=== PATIENT | female | born 1955 | race Caucasian/White ===

== ENCOUNTER 2016-10-24 09:15 | Emergency (ER) | payer OTHER ==
[2016-10-24] MEDS ORDERED: Albuterol/Ipratropium 3.0-0.5 MG/3 ML Neb Soln NEB ONE (09:40)
[2016-10-24] MEDS ORDERED: Doxycycline 100 MG Cap ONE ×2 (09:50)
[2016-10-24] MEDS ORDERED: predniSONE 10 MG Tab ONE (09:50)
[2016-10-24] MEDS ORDERED: Codeine/guaiFENesin 100mg-10 MG/5 ML Soln 118 ML Bottle ONE (09:50)
[2016-10-24 10:03] VITALS: BP 133/68
[2016-10-24] MEDS ORDERED: Codeine/guaiFENesin 100-10 MG/5 ML Syrup 5 ML Cup ONE (10:32)
[2016-10-24] MEDS ORDERED: predniSONE 20 MG Tab ONE (10:33)
--- NOTE | 2016-10-24 17:24 | ER ---
HISTORY OF PRESENT ILLNESS: A 61-year-old lady here with complaints of coughing, congestion, both of the sinus pressure, some headaches and chest congestion. Her cough is mostly negative. At times, she has been blowing a lot of phlegm out of her nose. She denies any problems with shortness of breath, but she has felt a little wheezy at times. She does have an albuterol inhaler she took at home, which did not seem to help very much. She has not been running a fever and denies any nausea. CURRENT MEDICATIONS: Reviewed. OBJECTIVE: GENERAL APPEARANCE: The patient is awake and alert. She has obvious head congestion and a fairly frequent coarse sounding cough. VITAL SIGNS: Reviewed. She is afebrile and normotensive. O2 sats are 94% on room air. HEENT: Ears, TMs are dull. Nares are congested. Oral mucous membranes are moist. Posterior pharynx shows drainage and scattered cobblestoning. The patient does have maxillary and frontal sinus tenderness with palpation. NECK: Supple. LUNG: Exam reveals slightly reduced air exchange throughout the lung whiting. I do not hear any rales, rhonchi, or obvious wheezing at this time. LABORATORY AND X-RAY: CBC is obtained showing a normal white count. Comprehensive metabolic panel is unremarkable. Chest x-ray is normal. DIAGNOSES: 1. Sinusitis. 2. Bronchitis. TREATMENT PLAN: Prednisone will be started 40 mg a day for a total of 4 days. Doxycycline will be started 100 mg b.i.d., and Robitussin A-C p.r.n. for coughing. The patient is to go home and rest, take her medications as directed. Followup should be within a couple of days if her symptoms are not improving, sooner of course if her condition should get worse. CRS/MODL /[id number]
--- NOTE | 2016-10-25 07:45 | CR ---
DATE OF SERVICE: 10/24/16 CLINICAL DATA: cough AP PORTABLE CHEST: Comparison is made to a prior exam dated 10/30/12. The heart size is normal. There is calcification of the aortic arch. The lungs are clear. No pneumothorax. No pleural effusions. No areas of consolidation. IMPRESSION: No evidence of acute intrathoracic disease. [id number] [facility]
== END 2016-10-24 10:45 | disposition home or self-care (01) ==
LOC: LB.ED 09:15
DX: J40 Bronchitis, not specified as acute or chronic (principal); J32.9 Chronic sinusitis, unspecified
CPT/HCPCS: 36415; 71010; 80053; 85025; 99285; A9270; J7620

== ENCOUNTER 2017-07-31 05:35 | Emergency (ER) | payer OTHER ==
--- NOTE | 2017-07-31 05:54 | EDM.PDOC ---
ED HPI GENERAL MEDICAL PROBLEM - General Chief Complaint: Cardiovascular Problem Stated Complaint: chest pain Time Seen by Provider: 07/31/17 05:35 Source of Information: Reports: Patient History Limitations: Reports: No Limitations - History of Present Illness INITIAL COMMENTS - FREE TEXT/NARRATIVE: Pt presented to emergency room with complaints of chest pain since she woke up around 4 am today. She claims she woke up with sharp chest pain in the left side of her chest, points to the left lower chest. Pain is sharp and intermittent, last just for few seconds and goes away. Is not asso with nausea, vomtiing, shortness of breath. There is no radiation of pain.Pain does not get worse with exertion, just happens randomly. Pain does not get worse with breathing. No cough, fever or chills. Pt calims for the past 1 wk now she has been having heart burn, belching and bloated feeling in her abdomen. She has chronic sinus infection and had headache. She has been taking Aspirin OTC every 4 hrs for her headache on and off for past few days. No bloody or dark stool. Onset: Today Onset Date: 07/31/17 Onset Time: 04:00 Duration: Intermittent Location: Reports: Chest Quality: Reports: Sharp Severity: Moderate Improves with: Reports: None Worsens with: Reports: None Associated Symptoms: Reports: Chest Pain, Headaches. Denies: Confusion, Cough, Diaphoresis, Fever/Chills, Loss of Appetite, Nausea/Vomiting, Rash, Seizure, Shortness of Breath, Weakness - Related Data Allergies Allergy/AdvReac Type Severity Reaction Status Date / Time amoxicillin [From Augmentin] Allergy Other Verified 10/24/16 09:36 clavulanic acid Allergy Other Verified 10/24/16 09:36 [From Augmentin] erythromycin base Allergy Rash Verified 10/24/16 09:37 [Erythromycin Base] Home Meds: Home Meds Albuterol [Proventil HFA] 1 puff ORAL.INH ASDIRECTED PRN 02/11/15 [History] Aspirin [Salvatore Chewable] 81 mg PO DAILY 02/11/15 [History] Calcium Carbonate/Vitamin D3 [Calcium 500 + Vit D 400] 1 each PO DAILY 02/11/15 [History] Fish Oil/DHA/EPA [Fish Oil 1,200 MG] 1 each PO DAILY 02/11/15 [History] Furosemide [Lasix] 20 mg PO BID 02/11/15 [History] Omeprazole [Prilosec] 20 mg PO DAILY 02/11/15 [History] carBAMazepine [Tegretol XR] 400 mg PO DAILY 02/11/15 [History] rOPINIRole HCl [Requip] 2 mg PO DAILY 02/11/15 [History] Past Medical History HEENT History: Reports: None Cardiovascular History: Reports: None Respiratory History: Reports: None Gastrointestinal History: Reports: None, Chronic Constipation Other OB/BYN History: parity: 2 gravity: 2. 1 c section. no previous check for JILL Other Musculoskeletal History: cracked right elbow Oncologic (Cancer) History: Reports: None - Past Surgical History Other HEENT Surgeries/Procedures: 4 sinus surgery's Other GI Surgeries/Procedures: no UI Other Neurological Surgeries/Procedures: no diabetes of self. left LE: anterior tibial area, into the left foot: noting the lateral aspect of the left foot Other Musculoskeletal Surgeries/Procedures:: LBP, no UI. no known scoliosis, no known LLD, does not wear orthosis Social & Family History - Tobacco Use Smoking Status *Q: Former Smoker Years of Tobacco use: 15 Used Tobacco, but Quit: Yes Month Tobacco Last Used: 20 yrs Second Hand Smoke Exposure: Yes - Alcohol Use Days Per Week of Alcohol Use: 7 Number of Drinks Per Day: 2 Total Drinks Per Week: 14 - Recreational Drug Use Recreational Drug Use: No ED ROS GENERAL - Review of Systems Review Of Systems: See Below Constitutional: Denies: Fever, Chills, Malaise, Weakness HEENT: Reports: Rhinitis, Sinus Problem. Denies: Throat Pain, Throat Swelling Respiratory: Denies: Shortness of Breath, Wheezing, Pleuritic Chest Pain, Cough , Sputum Cardiovascular: Reports: Chest Pain. Denies: Blood Pressure Problem, Dyspnea on Exertion, Edema, Lightheadedness Endocrine: Denies: Fatigue GI/Abdominal: Denies: Abdominal Pain, Black Stool, Bloody Stool, Constipation, Diarrhea, Hematemesis, Hematochezia, Nausea, Vomiting : Denies: Dysuria, Flank Pain Musculoskeletal: Denies: Joint Pain, Joint Swelling Skin: Denies: Bruising, Pruritis, Rash Neurological: Reports: No Symptoms Psychiatric: Reports: Anxiety. Denies: Agitation, Confusion ED EXAM, GENERAL - Physical Exam Exam: See Below Exam Limited By: No Limitations General Appearance: Alert, WD/WN, No Apparent Distress Eye Exam: Bilateral Eye: EOMI, PERRL Ears: Normal External Exam, Normal Canal, Hearing Grossly Normal, Normal TMs Ear Exam: Bilateral Ear: Auricle Normal, Canal Normal, TM normal Nose: Normal Inspection, Normal Mucosa, No Blood Throat/Mouth: Normal Inspection, Normal Lips, Normal Teeth, Normal Gums, Normal Oropharynx, Normal Voice, No Airway Compromise Head: Atraumatic, Normocephalic Neck: Normal Inspection, Supple, Non-Tender, Full Range of Motion Respiratory/Chest: No Respiratory Distress, Lungs Clear, Normal Breath Sounds, No Accessory Muscle Use, Chest Non-Tender Cardiovascular: Normal Peripheral Pulses, Regular Rate, Rhythm, No Edema, No Gallop, No JVD, No Murmur, No Rub GI/Abdominal: Normal Bowel Sounds, Soft, Non-Tender, No Organomegaly, No Distention, No Abnormal Bruit, No Mass, Other (mild epigastric discomfort) Neurological: Alert, Oriented, CN II-XII Intact, Normal Cognition, Normal Gait, Normal Reflexes, No Motor/Sensory Deficits Psychiatric: Anxious Skin Exam: Warm, Intact EKG INTERPRETATION EKG Date: 07/31/17 Rhythm: NSR Rate (Beats/Min): 80 [place]: Normal P-Wave: Present QRS: Normal ST-T: Normal QT: Normal Comparison: No Change Course - Vital Signs Text/Narrative:: Pt's EKG is in normal sinus rhythm. No acute changes. CBC, CMP are normal. Her troponin is negative. Her Chest X-ray is normal. Pt's chest pain and her presentation does not appear to be of cardiac origin. She get sharp intermittent pain which lasts for few seconds and goes away. Appears more like intercostal muscle spasms. Pt reassured. Also she has been consuming excessive amount of aspirin for her sinus headache, which might be the cause of her heart acosta, belching and bloated feeling.Aspirin can increase risk of GI bleeding and peptic ulcers. Pt is on prilosec, which I have increased to 40mg daily for 1 wk.Advised to stop aspirin and use tylenol 500mg every 4-6 hrs as needed. Also given tramadol 50mg tid PRn for her sinus headaches Also she has ENT appointment up coming for her sinus workup, which I have advised her to keep it . For now reassured that she does not have LA. Advised deep breathing exercises. - Orders/Labs/Meds Orders: Active Orders 24 hr Category Date Time Status EKG Documentation Completion [RC] ASDIRECTED Care 07/31/17 05:46 Ordered Chest 1V Frontal [CR] Stat Exams 07/31/17 05:57 Ordered Labs: Laboratory Tests 07/31/17 07/31/17 Range/Units 05:45 05:45 WBC 7.3 (4.0-11.0) K/uL RBC 3.94 (3.80-5.80) M/uL Hgb 12.7 (11.5-16.5) g/dL Hct 37.3 (37.0-47.0) % MCV 95 (76-96) fL MCH 32.2 H (27.0-32.0) pg MCHC 34.0 (31.0-35.0) g/dL RDW 13.5 (11.0-16.0) % Plt Count 292 (150-500) K/uL MPV 9.1 (6.0-10.0) fL Neut % (Auto) 32.1 L (45.0-70.0) % Lymph % (Auto) 53.9 H (20.0-40.0) % [place] % (Auto) 13.2 H (3.0-10.0) % Eos % (Auto) 0.0 L (1.0-5.0) % Baso % (Auto) 0.8 H (0.0-0.5) % Neut # (Auto) 2.33 (2.00-7.50) K/uL Lymph # (Auto) 3.91 (1.50-4.00) K/uL [place] # (Auto) 0.96 H (0.20-0.80) K/uL Eos # (Auto) 0.00 L (0.04-0.40) K/uL Baso # (Auto) 0.06 (0.02-0.10) K/uL Sodium 140 (136-145) mmol/L Potassium 3.7 (3.5-5.1) mmol/L Chloride 103 (98-107) mmol/L Carbon Dioxide 26.2 (21.0-32.0) mmol/L Anion Gap 14.5 (5.0-15.0) mmol/L BUN 21 D (8-26) mg/dL Creatinine 0.86 D (0.55-1.02) mg/dL Est Cr Clr Drug Dosing TNP Estimated GFR (MDRD) > 60 (>60) MLS/MIN BUN/Creatinine Ratio 24.4 (6-25) Glucose 101 H (74-100) mg/dL Calcium 9.5 (8.5-10.1) mg/dL Total Bilirubin 0.3 D (0.0-1.0) mg/dL AST 49 H (15-37) U/L ALT 53 (12-78) U/L Alkaline Phosphatase 105 (46-116) U/L Troponin I < 0.017 (0.000-0.060) ng/mL Total Protein 7.1 (6.4-8.2) g/dL Albumin 3.7 (3.4-5.0) g/dL Globulin 3.4 (2.2-4.2) g/dL Albumin/Globulin Ratio 1.1 (0.8-2.0) Departure - Departure Time of Disposition: 06:15 Disposition: Home, Self-Care 01 Condition: Good Clinical Impression: Chest pain Forms: ED Department Discharge Additional Instructions: Pt's EKG is in normal sinus rhythm. No acute changes. CBC, CMP are normal. Her troponin is negative. Her Chest X-ray is normal. Pt's chest pain and her presentation does not appear to be of cardiac origin. She get sharp intermittent pain which lasts for few seconds and goes away. Appears more like intercostal muscle spasms. Pt reassured. Also she has been consuming excessive amount of aspirin for her sinus headache, which might be the cause of her heart acosta, belching and bloated feeling.Aspirin can increase risk of GI bleeding and peptic ulcers. Pt is on prilosec, which I have increased to 40mg daily for 1 wk.Advised to stop aspirin and use tylenol 500mg every 4-6 hrs as needed. Also given tramadol 50mg tid PRn for her sinus headaches Also she has ENT appointment up coming for her sinus workup, which I have advised her to keep it . For now reassured that she does not have LA. Advised deep breathing exercises. - Problem List & Annotations (1) Chest pain SNOMED Code(s): 15992226 Code(s): R07.9 - CHEST PAIN, UNSPECIFIED Status: Acute Current Visit: Yes - Problem List Review Problem List Initiated/Reviewed/Updated: Yes - My Orders Last 24 Hours: My Active Orders 07/31/17 05:46 EKG Documentation Completion [RC] ASDIRECTED 07/31/17 05:57 Chest 1V Frontal [CR] Stat - Assessment/Plan Last 24 Hours: My Active Orders 07/31/17 05:46 EKG Documentation Completion [RC] ASDIRECTED 07/31/17 05:57 Chest 1V Frontal [CR] Stat Assessment:: Chest pain with gastritis Plan: Pt's EKG is in normal sinus rhythm. No acute changes. CBC, CMP are normal. Her troponin is negative. Her Chest X-ray is normal. Pt's chest pain and her presentation does not appear to be of cardiac origin. She get sharp intermittent pain which lasts for few seconds and goes away. Appears more like intercostal muscle spasms. Pt reassured. Also she has been consuming excessive amount of aspirin for her sinus headache, which might be the cause of her heart acosta, belching and bloated feeling.Aspirin can increase risk of GI bleeding and peptic ulcers. Pt is on prilosec, which I have increased to 40mg daily for 1 wk.Advised to stop aspirin and use tylenol 500mg every 4-6 hrs as needed. Also given tramadol 50mg tid PRn for her sinus headaches Also she has ENT appointment up coming for her sinus workup, which I have advised her to keep it . For now reassured that she does not have LA. Advised deep breathing exercises. Return if symptoms worsen.
[2017-07-31] MEDS ORDERED: traMADol 50 MG Tab ONE (06:00)
--- NOTE | 2017-07-31 20:50 | CR ---
DATE OF SERVICE: 07/31/2017 CLINICAL DATA: Chest pain. AP PORTABLE CHEST: Comparison is made to a prior exam dated 10/24/2016. The heart size is normal. The lungs are clear. No changes from the prior exam. No evidence of acute intrathoracic disease. [id number] [facility]
== END 2017-07-31 06:15 | disposition home or self-care (01) ==
LOC: LB.ED 05:35
DX: K29.70 Gastritis, unspecified, without bleeding (principal); Z88.1 Allergy status to other antibiotic agents; Z88.8 Allergy status to other drugs, medicaments and biological substances; Z79.82 Long term (current) use of aspirin; Z79.899 Other long term (current) drug therapy; Z87.891 Personal history of nicotine dependence
CPT/HCPCS: 36415; 71045; 80053; 84484; 85025; 93005; 99285-25; A9270-GY

== ENCOUNTER 2018-02-12 15:26 | Emergency (ER) | payer OTHER ==
[2018-02-12 16:12] VITALS: BP 155/67
[2018-02-12] MEDS ORDERED: Magnesium Citrate Solution 296 ML Bottle ONE (17:40)
--- NOTE | 2018-02-13 08:21 | CR ---
DATE OF SERVICE: 02/12/18 CLINICAL DATA: abdominal pain SUPINE AND UPRIGHT ABDOMEN: There is gas and stool present throughout the colon. There are multiple gas- filled loops of small bowel in the left abdomen. They are not distended. They do, however, contain scattered air-fluid levels. Enteritis should be considered. I cannot completely exclude a developing ileus or obstruction and followup imaging is recommended if clinically indicated. No free air. No other significant findings. [id number] [facility]
--- NOTE | 2018-02-13 08:35 | CR ---
DATE OF SERVICE: 02/12/18 CLINICAL DATA: abdominal pain PA AND LATERAL CHEST: No priors. The patient has taken a poor inspiration. The heart size is normal. There are minimal atelectatic changes in the left lung base. The lungs are otherwise clear. No pneumothorax. No pleural effusions. There are partial compression fractures involving multiple thoracic and lumbar vertebra, age indeterminate. [id number] [facility]
--- NOTE | 2018-02-13 08:41 | ER ---
DATE OF SERVICE: 02/12/2018 HISTORY OF PRESENT ILLNESS: This 62-year-old presents complaining of abdominal pain. She points to her epigastric and goes across to her left side. No chest pain. She does report intermittent nausea, but no vomiting, no diarrhea. She reports that she feels constipated. Symptoms have been getting progressively worse over the past 3 to 4 days. PHYSICAL EXAMINATION: GENERAL: Well developed, well nourished, in no acute distress. LUNGS: Good air movement. No wheezes. HEART: Regular rate and rhythm. Normal S1, S2. ABDOMEN: Soft, flat. Positive bowel sounds in all 4 quadrants. Mild epigastric tenderness to palpation. No rebound. BACK: No CVA tenderness. LABS/DIAGNOSTIC DATA: CMP showed elevated alk phos. Amylase and lipase were within normal limits. Urinalysis was unremarkable. 2-view of abdomen shows constipation with gas. Sed rate was normal. ASSESSMENT: Constipation. PLAN: A bottle of magnesium citrate tonight. Follow up with her primary doctor in clinic if symptoms persist. GLEN/NICHOLAS /[id number] [facility]
== END 2018-02-12 17:50 | disposition home or self-care (01) ==
LOC: LB.ED 15:26
DX: K59.00 Constipation, unspecified (principal)
CPT/HCPCS: 36415; 71046; 74019; 80053; 81001; 82150; 83690; 85025; 85651; 99284; A9270-GY

== ENCOUNTER 2020-05-16 09:08 | Day surgery (SDC) | payer MEDICARE, OTHER ==
[~2020-05-16 09:08] MED LIST: Metoclopramide 10 MG/2 ML SDV IV PRN; Sodium Chloride 0.9% 1,000 ML IV SCH
[2020-05-16] MEDS ORDERED: Propofol 1,000 MG/100 ML SDV ONE (11:00)
[2020-05-16 11:18] VITALS: BP 126/58; PULSE 62
--- NOTE | 2020-05-16 12:37 | OR ---
DATE OF OPERATION: 05/16/2020 SURGEON: Uriel Baker MD PREOPERATIVE DIAGNOSIS: Screening colonoscopy. POSTOPERATIVE DIAGNOSIS: Screening colonoscopy. PROCEDURE: Colonoscopy. ANESTHESIA: MAC. ESTIMATED BLOOD LOSS: None. COMPLICATIONS: None. INDICATION FOR PROCEDURE: The patient is a 64-year-old female here today for screening colonoscopy. Last colonoscopy was 10 years ago and was normal per patient. Denies any change in bowel habits since that time. DESCRIPTION OF PROCEDURE: Informed consent was obtained from the patient. The patient was taken to the operating room and placed on table in left lateral decubitus position. Monitored anesthesia care was administered. Digital rectal exam performed and was normal. Colonoscope then advanced through the anus directed toward the cecum. Cecum was reached and identified by appendiceal orifice and ileocecal valve. The colonoscope then slowly withdrawn. No polyps, no masses. No areas of ischemia or inflammation. She did have a few small diverticula in the sigmoid colon. The rectum was otherwise unremarkable. Colonoscope then withdrawn. FINDINGS: Mild sigmoid diverticulosis. RECOMMENDATIONS: We would recommend repeat screening colonoscopy in 10 years. ROSARIO /[id number]
== END 2020-05-16 12:20 | disposition home or self-care (01) ==
LOC: LB.SDS 09:08
PROVIDERS: ATTEND Surgery
DX: Z12.11 Encounter for screening for malignant neoplasm of colon (principal); K57.30 Diverticulosis of large intestine without perforation or abscess without bleeding
CPT/HCPCS: J2704; J7030

== ENCOUNTER 2022-08-14 17:06 | Emergency (ER) | payer MEDICARE, OTHER ==
[2022-08-14 17:15] VITALS: BP 120/57; PULSE 70
[2022-08-14] MEDS: Ketorolac 30 MG/ML SDV IM ONE (17:31)
== END 2022-08-14 17:55 | disposition home or self-care (01) ==
LOC: LB.ED 17:06
DX: S46.912A Strain of unspecified muscle, fascia and tendon at shoulder and upper arm level, left arm, initial encounter (principal); J45.909 Unspecified asthma, uncomplicated; Z88.0 Allergy status to penicillin; Z88.1 Allergy status to other antibiotic agents; Z79.82 Long term (current) use of aspirin; Z79.899 Other long term (current) drug therapy; W00.0XXA Fall on same level due to ice and snow, initial encounter
CPT/HCPCS: 73030-LT; 96372; 99281; 99283; J1885

== ENCOUNTER 2023-03-31 09:21 | Emergency (ER) | payer MEDICARE, OTHER ==
[2023-03-31] MEDS ORDERED: Sodium Chloride 0.9% 10 ML Syringe FLUSH PRN (09:55)
[2023-03-31 10:01] LABS: BASOPHILS ABSOLUTE AUTO 0.04 K/uL (0.02-0.10); BASOPHILS PERCENT AUTO 0.3 % (0.0-0.5); EOSINOPHILS ABSOLUTE AUTO 0.01 K/uL (0.04-0.40); EOSINOPHILS PERCENT AUTO 0.1 % (1.0-5.0); HEMATOCRIT 38.7 % (37.0-47.0); HEMOGLOBIN 13.4 g/dL (11.5-16.5); LYMPHOCYTES ABSOLUTE AUTO 1.21 K/uL (1.50-4.00); MEAN CORPUSCULAR HEMOGLOBIN 33.8 pg (27.0-32.0); MEAN CORPUSCULAR HGB CONC 34.6 g/dL (31.0-35.0); MEAN CORPUSCULAR VOLUME 98 fL (76-96); MONOCYTES ABSOLUTE AUTO 1.41 K/uL (0.20-0.80); MONOCYTES PERCENT AUTO 11.6 % (3.0-10.0); NEUTROPHILS ABSOLUTE AUTO 9.45 K/uL (2.00-7.50); PLATELET COUNT,PLT 339 K/uL (150-500); RED BLOOD CELL COUNT 3.96 M/uL (3.80-5.80); RED CELL DISTRIBUTION WIDTH 12.5 % (11.0-16.0); WHITE BLOOD CELL COUNT,WBC 12.1 K/uL (4.0-11.0)
[2023-03-31] MEDS: Lactated Ringers 1,000 ML IV SCH (10:11)
[2023-03-31 10:34] LABS: ALBUMIN 3.9 g/dL (3.4-5.0); ANION GAP 12.9 mmol/L (5.0-15.0); BILIRUBIN TOTAL 0.7 mg/dL (0.0-1.0); BUN/CREATININE RATIO 14.5 (6-25); CALCIUM 9.2 mg/dL (8.5-10.1); CARBON DIOXIDE,CO2 26.9 mmol/L (21.0-32.0); CREATININE 0.55 mg/dL (0.55-1.02); EST CRCL DRUG DOSING (CG) 70.32 mL/min; POTASSIUM,K 3.8 mmol/L (3.5-5.1); PROTEIN TOTAL,TP 7.7 g/dL (6.4-8.2)
[2023-03-31] MEDS: Sodium Chloride 0.9% 50 ML SDV FLUSH SCH (10:53)
[2023-03-31] MEDS: Iopamidol 612 MG/ML 100 ML Bottle IV PRN (10:53)
[2023-03-31 11:12] LABS: APPEARANCE,URINE CLEAR (CLEAR); BILIRUBIN,URINE NEGATIVE (NEGATIVE); COLOR,URINE YELLOW; GLUCOSE,URINE NEGATIVE (NEGATIVE); KETONES,URINE NEGATIVE (NEGATIVE); LEUKOCYTE ESTERASE,URINE NEGATIVE (NEGATIVE); NITRITE,URINE NEGATIVE (NEGATIVE); OCCULT BLOOD,URINE NEGATIVE (NEGATIVE); PH,URINE 8.5 (5.0-8.0); PROTEIN,URINE NEGATIVE (NEGATIVE); UROBILINOGEN,URINE 0.2 E.U./dL (0.2-1.0)
[2023-03-31] MEDS: Piperacillin/Tazobactam 3.375 GM in Sodium Chloride 0.9% 100 ML IV SCH (11:42)
[2023-03-31] MEDS: Bisacodyl 10 MG Supp RECTAL ONE (13:10)
[2023-03-31 15:33] VITALS: BP 119/58; PULSE 64
== END 2023-03-31 15:14 | disposition home or self-care (01) ==
LOC: LB.ED 09:21
DX: K59.00 Constipation, unspecified (principal); J45.909 Unspecified asthma, uncomplicated; J44.9 Chronic obstructive pulmonary disease, unspecified; E03.9 Hypothyroidism, unspecified; Z88.0 Allergy status to penicillin; Z88.1 Allergy status to other antibiotic agents; Z79.82 Long term (current) use of aspirin; Z79.899 Other long term (current) drug therapy; Z87.891 Personal history of nicotine dependence
CPT/HCPCS: 36415; 74177; 80053; 81003; 83605; 85025; 96361; 96365; 99284-25; A9270-GY; J2543; J3490; J7120; Q9967

== ENCOUNTER 2023-07-10 11:33 | Emergency (ER) | payer MEDICARE, OTHER ==
[2023-07-10 11:48] VITALS: BP 145/45; PULSE 80
[2023-07-10] MEDS ORDERED: cefTRIAXone 1 GM Vial IM ONE (12:13)
[2023-07-10] MEDS ORDERED: cefTRIAXone 1 GM Vial ONE (12:17)
[2023-07-10] MEDS ORDERED: Cephalexin 500 MG Cap ONE (12:30)
== END 2023-07-10 12:50 | disposition home or self-care (01) ==
LOC: LB.ED 11:33
DX: T81.41XA Infection following a procedure, superficial incisional surgical site, initial encounter (principal); J45.909 Unspecified asthma, uncomplicated; K21.9 Gastro-esophageal reflux disease without esophagitis; M19.90 Unspecified osteoarthritis, unspecified site; E03.9 Hypothyroidism, unspecified; Z88.0 Allergy status to penicillin; Z88.1 Allergy status to other antibiotic agents; Z79.82 Long term (current) use of aspirin; Z79.899 Other long term (current) drug therapy
CPT/HCPCS: 96372; 99283; A9270-GY; J0696

== ENCOUNTER 2025-01-23 16:31 | Inpatient (IN) | payer MEDICARE, OTHER ==
[2025-01-23] MEDS ORDERED: Sodium Chloride 0.9% 10 ML Syringe FLUSH PRN (16:58)
[2025-01-23] MEDS: Ondansetron 4 MG/2 ML SDV IVPUSH ONE (17:21)
[2025-01-23 17:29] LABS: BASOPHILS ABSOLUTE AUTO 0.04 K/uL (0.02-0.10); BASOPHILS PERCENT AUTO 0.2 % (0.0-0.5); EOSINOPHILS ABSOLUTE AUTO 0.00 K/uL (0.04-0.40); EOSINOPHILS PERCENT AUTO 0.0 % (1.0-5.0); LYMPHOCYTES ABSOLUTE AUTO 1.44 K/uL (1.50-4.00); LYMPHOCYTES PERCENT AUTO 8.3 % (20.0-40.0); MEAN PLATELET VOLUME 8.9 fL (6.0-10.0); MONOCYTES ABSOLUTE AUTO 1.95 K/uL (0.20-0.80); MONOCYTES PERCENT AUTO 11.3 % (3.0-10.0); NEUTROPHILS ABSOLUTE AUTO 13.83 K/uL (2.00-7.50); NEUTROPHILS PERCENT AUTO 80.2 % (45.0-70.0); PLATELET COUNT,PLT 330 K/uL (150-500); RED BLOOD CELL COUNT 3.69 M/uL (3.80-5.80); RED CELL DISTRIBUTION WIDTH 12.4 % (11.0-16.0); WHITE BLOOD CELL COUNT,WBC 17.3 K/uL (4.0-11.0)
[2025-01-23 17:45] LABS: BLOOD UREA NITROGEN,BUN 16.0 mg/dL (8-26); CARBON DIOXIDE,CO2 25.8 mmol/L (21.0-32.0); CHLORIDE,CL 96.0 mmol/L (98-107); CREATININE 0.87 mg/dL (0.55-1.02); EST CRCL DRUG DOSING (CG) 43.22 mL/min; ESTIMATED GFR 72.0 mL/min (>60); GLUCOSE RANDOM 131.0 mg/dL (74-100); POTASSIUM,K 4.0 mmol/L (3.5-5.1); SODIUM,NA 134.0 mmol/L (136-145)
[2025-01-23] MEDS: Iopamidol 612 MG/ML 100 ML Bottle IV SCH (18:09)
[2025-01-23] MEDS: Sodium Chloride 0.9% 50 ML SDV FLUSH ONE (18:09)
[2025-01-23] MEDS: Ciprofloxacin in D5W 400 MG in Premix Bag 1 BAG IV ONE (19:19)
[2025-01-23] MEDS: metroNIDAZOLE/Normal Saline 500 MG in Premix Bag 1 BAG IV ONE (20:10)
[2025-01-23] MEDS ORDERED: ALBUTEROL ORAL.INH PRN (20:41)
[2025-01-23] MEDS ORDERED: ALBUTEROL INH PRN (22:04)
[2025-01-23] MEDS: CARBAMAZEPINE 200 MG PO SCH (22:27)
[2025-01-24] MEDS ORDERED: Ondansetron 4 MG/2 ML SDV IVPUSH PRN (00:19)
[2025-01-24] MEDS: Ketorolac 15 MG/ML SDV IVPUSH PRN (00:32)
[2025-01-24] MEDS: CARBAMAZEPINE 400 MG PO SCH (08:00)
[2025-01-24 09:35] LABS: BASOPHILS ABSOLUTE AUTO 0.05 K/uL (0.02-0.10); BASOPHILS PERCENT AUTO 0.3 % (0.0-0.5); EOSINOPHILS ABSOLUTE AUTO 0.00 K/uL (0.04-0.40); EOSINOPHILS PERCENT AUTO 0.0 % (1.0-5.0); LYMPHOCYTES ABSOLUTE AUTO 1.28 K/uL (1.50-4.00); LYMPHOCYTES PERCENT AUTO 8.8 % (20.0-40.0); MEAN PLATELET VOLUME 8.9 fL (6.0-10.0); MONOCYTES ABSOLUTE AUTO 1.87 K/uL (0.20-0.80); MONOCYTES PERCENT AUTO 12.9 % (3.0-10.0); NEUTROPHILS ABSOLUTE AUTO 11.33 K/uL (2.00-7.50); NEUTROPHILS PERCENT AUTO 78.0 % (45.0-70.0); PLATELET COUNT,PLT 250 K/uL (150-500); RED BLOOD CELL COUNT 2.97 M/uL (3.80-5.80); RED CELL DISTRIBUTION WIDTH 12.6 % (11.0-16.0); WHITE BLOOD CELL COUNT,WBC 14.5 K/uL (4.0-11.0)
[2025-01-24 09:46] LABS: BLOOD UREA NITROGEN,BUN 12.0 mg/dL (8-26); CARBON DIOXIDE,CO2 24.6 mmol/L (21.0-32.0); CHLORIDE,CL 104.0 mmol/L (98-107); CREATININE 0.73 mg/dL (0.55-1.02); EST CRCL DRUG DOSING (CG) 51.51 mL/min; ESTIMATED GFR 88.0 mL/min (>60); GLUCOSE RANDOM 128.0 mg/dL (74-100); POTASSIUM,K 4.1 mmol/L (3.5-5.1); SODIUM,NA 138.0 mmol/L (136-145)
[2025-01-24 13:15] LABS: APPEARANCE,URINE CLOUDY (CLEAR); GLUCOSE,URINE NEGATIVE (NEGATIVE); OCCULT BLOOD,URINE MODERATE (NEGATIVE)
[2025-01-24 13:36] LABS: SQUAMOUS EPITHELIAL CELLS,UR OCCASIONAL /HPF
[2025-01-24] MEDS: VANCOMYCIN 125 MG PO SCH (18:27)
[2025-01-24] MEDS: Acetaminophen/HYDROcodone 325-5 MG Tab PO PRN (21:44)
[2025-01-25 08:17] VITALS: BP 126/51; PULSE 70
[2025-01-25 09:01] LABS: BASOPHILS ABSOLUTE AUTO 0.04 K/uL (0.02-0.10); BASOPHILS PERCENT AUTO 0.3 % (0.0-0.5); EOSINOPHILS ABSOLUTE AUTO 0.00 K/uL (0.04-0.40); EOSINOPHILS PERCENT AUTO 0.0 % (1.0-5.0); LYMPHOCYTES ABSOLUTE AUTO 1.47 K/uL (1.50-4.00); LYMPHOCYTES PERCENT AUTO 11.1 % (20.0-40.0); MEAN PLATELET VOLUME 9.2 fL (6.0-10.0); MONOCYTES ABSOLUTE AUTO 1.15 K/uL (0.20-0.80); MONOCYTES PERCENT AUTO 8.7 % (3.0-10.0); NEUTROPHILS ABSOLUTE AUTO 10.58 K/uL (2.00-7.50); NEUTROPHILS PERCENT AUTO 79.9 % (45.0-70.0); PLATELET COUNT,PLT 247 K/uL (150-500); RED BLOOD CELL COUNT 2.80 M/uL (3.80-5.80); RED CELL DISTRIBUTION WIDTH 12.4 % (11.0-16.0); WHITE BLOOD CELL COUNT,WBC 13.2 K/uL (4.0-11.0)
[2025-01-25] MEDS ORDERED: Acetaminophen/HYDROcodone 325-5 MG Tab ONE (10:00)
[2025-01-27 01:30] LABS: ADENOVIRUS 40/41 PCR Not Detected; ASTROVIRUS PCR Not Detected; CRYPTOSPORIDIUM PCR Not Detected; CYCLOSPORA CAYETANENSIS PCR Not Detected; ENTAMOEBA HISTOLYTICA PCR Not Detected; ENTEROAGGREGATIVE E. COLI PCR Not Detected; ENTEROPATHOGENIC E. COLI PCR Not Detected; ENTEROTOXIGENIC E. COLI PCR Not Detected; GIARDIA LAMBLIA PCR Not Detected; NOROVIRUS GI/GII PCR Not Detected; PLESIOMONAS SHIGELLOIDES PCR Not Detected; ROTAVIRUS A PCR Not Detected; SALMONELLA PCR Not Detected; SAPOVIRUS PCR Not Detected; SHIG/ENTEROINVASIVE E COLI PCR Not Detected; SHIGA TOXIN-PRODUC E. COLI PCR Not Detected; VIBRIO CHOLERAE PCR Not Detected; VIBRIO PCR Not Detected; YERSINIA ENTEROCOLITICA PCR Not Detected
== END 2025-01-25 10:03 | disposition home or self-care (01) | DRG 373 ==
LOC: LB.ED 16:31 → LB.MS 20:15
PROVIDERS: ADMIT Family Medicine; ATTEND Family Medicine
DX: A04.72 Enterocolitis due to Clostridium difficile, not specified as recurrent (principal); K52.9 Noninfective gastroenteritis and colitis, unspecified; J45.909 Unspecified asthma, uncomplicated; H54.7 Unspecified visual loss; K21.9 Gastro-esophageal reflux disease without esophagitis; K59.09 Other constipation; I10 Essential (primary) hypertension; E03.9 Hypothyroidism, unspecified; E78.00 Pure hypercholesterolemia, unspecified; M54.9 Dorsalgia, unspecified; G89.29 Other chronic pain; M81.0 Age-related osteoporosis without current pathological fracture; F32.A Depression, unspecified; Z98.49 Cataract extraction status, unspecified eye; Z87.891 Personal history of nicotine dependence; Z91.018 Allergy to other foods; Z88.8 Allergy status to other drugs, medicaments and biological substances; Z88.1 Allergy status to other antibiotic agents; Z88.0 Allergy status to penicillin; Z79.82 Long term (current) use of aspirin; Z79.52 Long term (current) use of systemic steroids; Z79.899 Other long term (current) drug therapy
CPT/HCPCS: 36415; 74177; 80048; 81001; 83690; 85025; 86140; 87040; 87045; 87046; 87086; 87324; 87427; 87493; 87507; 96361; 96365; 96367; 96375; 96376; 99222; 99232; 99238; 99285-25; A9270-GY; J0744; J1171; J1836; J1885; J2405; J7030; Q9967

== ENCOUNTER 2025-05-06 10:34 | Emergency (ER) | payer MEDICARE, OTHER ==
[2025-05-06 10:49] VITALS: BP 162/66; PULSE 84
== END 2025-05-06 11:13 | disposition home or self-care (01) ==
LOC: LB.ED 10:34
DX: Z48.817 Encounter for surgical aftercare following surgery on the skin and subcutaneous tissue (principal); J45.909 Unspecified asthma, uncomplicated; K21.9 Gastro-esophageal reflux disease without esophagitis; M19.90 Unspecified osteoarthritis, unspecified site; Z88.0 Allergy status to penicillin; Z88.1 Allergy status to other antibiotic agents; Z88.8 Allergy status to other drugs, medicaments and biological substances; Z79.82 Long term (current) use of aspirin; Z79.899 Other long term (current) drug therapy
CPT/HCPCS: 99283